=== PATIENT | female | born 1975 | race Caucasian/White ===

== ENCOUNTER 2019-02-04 07:26 | Emergency (ER) | payer OTHER ==
[2019-02-04 07:40] VITALS: RESP 16
[2019-02-04] MEDS ORDERED: SODIUM CHLORIDE 0.9% 1,000 ML IV STA (07:48)
[2019-02-04 08:03] LABS: Glucose,Whole Blood 100 mg/dL (75-99)
[2019-02-04] MEDS ORDERED: ONDANSETRON 4 MG/2 ML VIAL IVP STA (08:11)
[2019-02-04] MEDS ORDERED: MECLIZINE 12.5 MG TAB PO STA (08:12)
--- NOTE | 2019-02-04 08:14 | ED ---
General Adult HPI - General Chief complaint: Dizziness Stated complaint: Dizzy Time Seen by Provider: 02/04/19 07:45 Source: patient Mode of arrival: wheelchair Limitations: no limitations - History of Present Illness Initial comments: Dictation was produced using [employer] dictation software. please excuse any grammatical, word or spelling errors. Chief Complaint: Patient is a 43-year-old female past medical history of migr aines presents with chief complaint of dizziness. History of Present Illness: Patient is a 43-year-old female. Patient states she felt a little dizzy last night. She went to bed and woke up and felt really dizzy propping her to come to the emergency department. Patient has a past medical history of migraines. She does not complain of a headache today. Patient otherwise has felt normal. No vomiting. Patient states she has regular diarrhea. Patient has any medical problems. Denies any chest pain, shortness of breath. Denies any neuro deficits or asymmetrical sensory issues acutely. P atient reports that she feels more dizzy when she stands up. Denies any sensation of the room spinning. The ROS documented in this emergency department record has been reviewed and confirmed by me. Those systems with pertinent positive or negative responses have been documented in the HPI. All other systems are other negative and/or noncontributory. PHYSICAL EXAM: General Impression: Alert and oriented x3, not in acute distress HEENT: Normocephalic atraumatic, extra-ocular movements intact, pupils equal and reactive to light bilaterally, mucous membranes moist. Cardiovascular: Heart regular rate and rhythm, S1&S2 audible, no murmurs, rubs or gallops Chest: Lungs clear to auscultation bilaterally, no rhonchi, no wheeze, no rales Abdomen: Bowel sounds present, abdomen soft, non-tender, non-distended, no organomegaly Musculoskeletal: Pulses present and equal in all extremities, no peripheral edema Motor: no focal deficits noted Neurological: CN II-XII grossly intact, no focal motor or sensory deficits noted, no gait ataxia. The nose and heel to leija are not ataxic Skin: Intact with no visualized rashes Psych: Normal affect and mood ED course: 43-year-old female chief complaint dizziness. Physical examination is benign. No neuro deficits noted. Vital signs upon arrival are within except limits. EKG is benign. Patient is otherwise well-appearing. Patient has no localizing infectious symptoms. Laboratory evaluation obtained. CBC, metabolic panel, urinalysis, urine tests are within acceptable limits. Patient given intravenous fluids, Zofran and Antivert with improvement of symptoms after evaluation in couple hours. At this point there is no clear reason of patient's symptoms. She is told that however she appears well at this time there is no clinical suspicion of vertebrobasilar insufficiency or central vertigo. Patient has no gait ataxia. Neuro exam is otherwise benign. Patient clear for discharge. She still to follow-up with primary care physician. Patient prescription for Antivert to take at home when necessary dizziness. EKG interpretation: Ventricular rate 70, normal sinus rhythm, ID interval 148, QRS 82, QTC 419. No ID prolongation, no QTC prolongation, no ST or T-wave changes noted. . Overall, this EKG is unremarkable - Related Data Home Medications Medication Instructions Recorded Confirmed Cetirizine HCl [Zyrtec] 10 mg PO DAILY 06/02/15 02/04/19 Metoclopramide HCl [Reglan] 10 mg PO QID 06/02/15 02/04/19 Albuterol Sulfate [Proair Hfa] 1 - 2 puff INHALATION RT-Q6H PRN 01/23/16 02/04/19 Budesonide/Formoterol Fumarate 2 puff INHALATION RT-DAILY 01/23/16 02/04/19 [Symbicort 160-4.5 Mcg Inhaler] Butalb/Asprin/Caff 50-325-40Mg 1 - 2 cap PO Q4HR PRN 02/04/19 02/04/19 [Fiorinal 50-325-40 MG] Cholecalciferol [Vitamin D3] 1,000 unit PO DAILY 02/04/19 02/04/19 Ferrous Sulfate [Feosol] 325 mg PO DAILY 02/04/19 02/04/19 Omeprazole 40 mg PO DAILY 02/04/19 02/04/19 rOPINIRole HCL [Requip] 0.5 mg PO HS 02/04/19 02/04/19 Previous Rx's Medication Instructions Recorded Meclizine [Antivert] 25 mg PO BID PRN #12 tab 02/04/19 Allergies Allergy/AdvReac Type Severity Reaction Status Date / Time erythromycin base Allergy Severe Abdominal Verified 02/04/19 08:20 [From Elijah-Tab] Pain hydromorphone HCl AdvReac Nausea & Verified 02/04/19 08:20 [From Dilaudid] Vomiting Review of Systems ROS Statement: Those systems with pertinent positive or pertinent negative responses have been documented in the HPI. ROS Other: All systems not noted in ROS Statement are negative. Past Medical History Past Medical History: Asthma, GERD/Reflux, Pneumonia, Skin Disorder Additional Past Medical History / Comment(s): migraines, hypoglycemia, "I always run a low grade fever", irregular bowel movements, athritis, frequent hives from environmental allergies, gallbladder disorder. History of Any Multi-Drug Resistant Organisms: None Reported Past Surgical History: Tonsillectomy Additional Past Surgical History / Comment(s): EGD Past Anesthesia/Blood Transfusion Reactions: Motion Sickness, Postoperative Nausea & Vomiting (PONV) Past Psychological History: Depression Smoking Status: Current every day smoker Past Alcohol Use History: Occasional Past Drug Use History: None Reported - Past Family History Father Family Medical History: Cancer, Deep Vein Thrombosis (DVT) General Exam Limitations: no limitations Course Vital Signs 02/04/19 07:37 Temperature 98.3 F Pulse Rate 87 Respiratory 16 Rate Blood Pressure 123/80 O2 Sat by Pulse 97 Oximetry Medical Decision Making - Lab Data Result diagrams: 02/04/19 08:20 02/04/19 08:20 Lab Results 02/04/19 02/04/19 02/04/19 Range/Units 08:01 08:20 08:20 WBC (3.8-10.6) k/uL RBC (3.80-5.40) m/uL Hgb (11.4-16.0) gm/dL Hct (34.0-46.0) % MCV (80.0-100.0) fL MCH (25.0-35.0) pg MCHC (31.0-37.0) g/dL RDW (11.5-15.5) % Plt Count (150-450) k/uL Neutrophils % % Lymphocytes % % Monocytes % % Eosinophils % % Basophils % % Neutrophils # (1.3-7.7) k/uL Lymphocytes # (1.0-4.8) k/uL Monocytes # (0-1.0) k/uL Eosinophils # (0-0.7) k/uL Basophils # (0-0.2) k/uL Sodium (137-145) mmol/L Potassium (3.5-5.1) mmol/L Chloride (98-107) mmol/L Carbon Dioxide (22-30) mmol/L Anion Gap mmol/L BUN (7-17) mg/dL Creatinine (0.52-1.04) mg/dL Est GFR (CKD-EPI)AfAm (>60 ml/min/1.73 sqM) Est GFR (CKD-EPI)NonAf (>60 ml/min/1.73 sqM) Glucose (74-99) mg/dL POC Glucose (mg/dL) 100 H (75-99) mg/dL POC Glu Insolvency Consultant ID Natalie Maldonado Calcium (8.4-10.2) mg/dL Urine Color Light Yellow Urine Appearance Cloudy H (Clear) Urine pH 7.5 (5.0-8.0) Ur Specific [place] 1.009 (1.001-1.035) Urine Protein Negative (Negative) Urine Glucose (UA) Negative (Negative) Urine Ketones Negative (Negative) Urine Blood Negative (Negative) Urine Nitrite Negative (Negative) Urine Bilirubin Negative (Negative) Urine Urobilinogen <2.0 (<2.0) mg/dL Ur Leukocyte Esterase Moderate H (Negative) Urine WBC 4 (0-5) /hpf Ur Squamous Epith Cells 8 H (0-4) /hpf Urine Mucus Rare H (None) /hpf Urine Yeast (Budding) Rare H (None) /hpf Urine HCG, Qual Not Detected (Not Detectd) 02/04/19 02/04/19 Range/Units 08:20 08:20 WBC 8.7 (3.8-10.6) k/uL RBC 4.96 (3.80-5.40) m/uL Hgb 14.6 (11.4-16.0) gm/dL Hct 44.7 (34.0-46.0) % MCV 90.0 (80.0-100.0) fL MCH 29.4 (25.0-35.0) pg MCHC 32.7 (31.0-37.0) g/dL RDW 13.6 (11.5-15.5) % Plt Count 300 (150-450) k/uL Neutrophils % 62 % Lymphocytes % 26 % Monocytes % 6 % Eosinophils % 5 % Basophils % 1 % Neutrophils # 5.4 (1.3-7.7) k/uL Lymphocytes # 2.2 (1.0-4.8) k/uL Monocytes # 0.5 (0-1.0) k/uL Eosinophils # 0.4 (0-0.7) k/uL Basophils # 0.1 (0-0.2) k/uL Sodium 138 (137-145) mmol/L Potassium 4.5 (3.5-5.1) mmol/L Chloride 105 (98-107) mmol/L Carbon Dioxide 27 (22-30) mmol/L Anion Gap 6 mmol/L BUN 7 (7-17) mg/dL Creatinine 0.57 (0.52-1.04) mg/dL Est GFR (CKD-EPI)AfAm >90 (>60 ml/min/1.73 sqM) Est GFR (CKD-EPI)NonAf >90 (>60 ml/min/1.73 sqM) Glucose 96 (74-99) mg/dL POC Glucose (mg/dL) (75-99) mg/dL POC Glu Insolvency Consultant ID Calcium 10.3 H (8.4-10.2) mg/dL Urine Color Urine Appearance (Clear) Urine pH (5.0-8.0) Ur Specific [place] (1.001-1.035) Urine Protein (Negative) Urine Glucose (UA) (Negative) Urine Ketones (Negative) Urine Blood (Negative) Urine Nitrite (Negative) Urine Bilirubin (Negative) Urine Urobilinogen (<2.0) mg/dL Ur Leukocyte Esterase (Negative) Urine WBC (0-5) /hpf Ur Squamous Epith Cells (0-4) /hpf Urine Mucus (None) /hpf Urine Yeast (Budding) (None) /hpf Urine HCG, Qual (Not Detectd) Disposition Clinical Impression: Dizziness Disposition: HOME SELF-CARE Condition: Good Instructions (If sedation given, give patient instructions): Dizziness (ED) Prescriptions: Meclizine [Antivert] 25 mg PO BID PRN #12 tab PRN Reason: dizziness Is patient prescribed a controlled substance at d/c from ED?: No Referrals: Andrés Pabon MD [Primary Care Provider] - 1-2 days Time of Disposition: 09:55
[2019-02-04 08:46] LABS: Appearance,Urine Cloudy (Clear); Bilirubin,Urine Negative (Negative); Blood,Urine Negative (Negative); Budding Yeast,Urine Rare /hpf; Color,Urine Light Yellow; Glucose,Urine (UA) Negative (Negative); Ketones,Urine Negative (Negative); Leukocyte Esterase,Urine Moderate (Negative); Mucus,Urine Rare /hpf; Nitrite,Urine Negative (Negative); PH, Urine 7.5 (5.0-8.0); Protein,Urine Negative (Negative); Specific Gravity,Urine 1.009 (1.001-1.035); Squamous Epithelial Cell,Urine 8 /hpf (0-4); Urobilinogen,Urine <2.0 mg/dL (<2.0); WBC,Urine 4 /hpf (0-5)
[2019-02-04 09:17] LABS: Basophils # (A) 0.1 k/uL (0-0.2); Basophils % (A) 1 %; Eosinophils # (A) 0.4 k/uL (0-0.7); Eosinophils % (A) 5 %; HCT 44.7 % (34.0-46.0); HGB 14.6 gm/dL (11.4-16.0); Lymphocytes # (A) 2.2 k/uL (1.0-4.8); Lymphocytes % (A) 26 %; MCH 29.4 pg (25.0-35.0); MCHC 32.7 g/dL (31.0-37.0); Mean Platelet Volume 7.8; Monocytes # (A) 0.5 k/uL (0-1.0); Monocytes % (A) 6 %; Neutrophils # (A) 5.4 k/uL (1.3-7.7); Neutrophils % (A) 62 %; Platelet Count 300 k/uL (150-450); RBC 4.96 m/uL (3.80-5.40); RDW 13.6 % (11.5-15.5); WBC 8.7 k/uL (3.8-10.6)
[2019-02-04 09:21] LABS: Anion Gap 6 mmol/L; Blood Urea Nitrogen 7 mg/dL (7-17); Calcium 10.3 mg/dL (8.4-10.2); Carbon Dioxide 27 mmol/L (22-30); Chloride 105 mmol/L (98-107); Glucose 96 mg/dL (74-99); Potassium 4.5 mmol/L (3.5-5.1); Sodium 138 mmol/L (137-145)
[2019-02-04 10:16] VITALS: BP 121/80; PULSE 75; TEMP 98.5
== END 2019-02-04 10:16 | disposition home or self-care (01) ==
LOC: EC 07:26
DX: R42 Dizziness and giddiness (principal); R19.7 Diarrhea, unspecified; J45.909 Unspecified asthma, uncomplicated; K21.9 Gastro-esophageal reflux disease without esophagitis; F17.200 Nicotine dependence, unspecified, uncomplicated; Z88.1 Allergy status to other antibiotic agents; Z88.5 Allergy status to narcotic agent; Z79.51 Long term (current) use of inhaled steroids; Z79.899 Other long term (current) drug therapy; Z91.048 Other nonmedicinal substance allergy status
CPT/HCPCS: 36415; 93005; 80048; 85025; 81001; 81025; 99284; 96374; 96361; J2405

== ENCOUNTER → 2020-06-02 | Outpatient (CLI) | payer SELFPAY | END | disposition home or self-care (01) | LOC: LABWHC1 12:39 | PROVIDERS: ATTEND Family Medicine | DX: Z20.828 Contact with and (suspected) exposure to other viral communicable diseases (principal) | CPT/HCPCS: U0003; C9803 ==

== ENCOUNTER → 2020-11-10 | Outpatient (CLI) | payer OTHER ==
--- NOTE | 2020-11-14 14:08 | MM ---
Reason for exam: screening (asymptomatic). Last mammogram was performed 8 years ago. Physical Findings: A clinical breast exam by your physician is recommended on an annual basis and results should be correlated with mammographic findings. MG Screening Mammo w CAD Bilateral CC and MLO view(s) were taken. Prior study comparison: November 24, 2012, CAD bilateral diagnostic mammogram. There are scattered fibroglandular densities. There are benign appearing round calcifications bilaterally. There is no discrete abnormality. ASSESSMENT: Benign, BI-RAD 2 RECOMMENDATION: Routine screening mammogram of both breasts in 1 year.
== END | disposition home or self-care (01) ==
LOC: RADMAMWWP 09:58
PROVIDERS: ATTEND Obstetrics & Gynecology
DX: Z12.31 Encounter for screening mammogram for malignant neoplasm of breast (principal); Z98.82 Breast implant status
CPT/HCPCS: 77067

== ENCOUNTER → 2021-01-03 | Outpatient (CLI) | payer OTHER ==
--- NOTE | 2021-01-03 15:57 | CT ---
EXAMINATION TYPE: CT brain wo con DATE OF EXAM: 01/03/2021 COMPARISON: HISTORY: Headache x2 days. CT DLP: 999.1 mGycm. Automated Exposure Control for Dose Reduction was Utilized. TECHNIQUE: CT scan of the head is performed without contrast. FINDINGS: There is no acute intracranial hemorrhage, mass effect, or midline shift identified. The ventricles and sulci are within normal limits in size. The globes are intact and the visualized sin uses are clear. Minimal inferior cerebellar tonsillar ectopia noted incidentally. IMPRESSION: No acute intracranial hemorrhage, mass effect, or midline shift is seen.
== END | disposition home or self-care (01) ==
LOC: RADCTMAIN 15:22
PROVIDERS: ATTEND Physician Assistant
DX: R51.9 Headache, unspecified (principal)
CPT/HCPCS: 70450

== ENCOUNTER 2021-07-04 06:19 | Day surgery (SDC) | payer OTHER ==
[2021-06-30 14:44] VITALS: BMI 34.7
[~2021-07-04 06:19] MED LIST: Pre Op ABX Message 1 EACH MISC MISCELLANE ONE
[2021-07-04] MEDS ORDERED: ONDANSETRON 4 MG/2 ML VIAL ONE (07:03)
[2021-07-04] MEDS ORDERED: ONDANSETRON 4 MG/2 ML VIAL IVP ONE (07:06)
[2021-07-04] MEDS ORDERED: LACTATED RINGERS 1,000 ML IV ONE ×3 (07:06→08:30)
[2021-07-04] MEDS ORDERED: SCOPOLAMINE 1.5MG/72HR PATCH TRANSDERM ONE (07:07)
[2021-07-04] MEDS ORDERED: DEXAMETHASONE SOD PHOSPHATE 4 MG/ML 1 ML VIAL IVP ONE (07:07)
[2021-07-04 07:10] LABS: Basophils # (A) 0.1 k/uL (0-0.2); Basophils % (A) 1 %; Eosinophils # (A) 0.5 k/uL (0-0.7); Eosinophils % (A) 4 %; HCT 43.4 % (34.0-46.0); Lymphocytes # (A) 3.7 k/uL (1.0-4.8); Lymphocytes % (A) 32 %; MCHC 34.6 g/dL (31.0-37.0); MCV 95.1 fL (80.0-100.0); Mean Platelet Volume 8.2; Monocytes # (A) 0.7 k/uL (0-1.0); Monocytes % (A) 7 %; Neutrophils # (A) 6.2 k/uL (1.3-7.7); Neutrophils % (A) 55 %; Platelet Count 298 k/uL (150-450); RBC 4.56 m/uL (3.80-5.40); RDW 13.5 % (11.5-15.5); WBC 11.4 k/uL (3.8-10.6)
--- NOTE | 2021-07-04 07:16 | P.HPOB ---
History of Present Illness H&P Date: 07/04/21 Chief Complaint: family planning 45 year old presents for laparoscopic tubal ligation. Review of Systems All systems: negative Constitutional: Denies chills, Denies fever Eyes: denies blurred vision, denies pain Ears, nose, mouth and throat: Denies headache, Denies sore throat Cardiovascular: Denies chest pain, Denies shortness of breath Respiratory: Denies cough Gastrointestinal: Denies abdominal pain, Denies diarrhea, Denies nausea, Denies vomiting Genitourinary: Denies dysuria, Denies hematuria Musculoskeletal: Denies myalgias Integumentary: Denies pruritus, Denies rash Neurological: Denies numbness, Denies weakness Psychiatric: Denies anxiety, Denies depression Endocrine: Denies fatigue, Denies weight change Past Medical History Past Medical History: Asthma, GERD/Reflux, Pneumonia, Skin Disorder Additional Past Medical History / Comment(s): migraines, hypoglycemia, "I always run a low grade fever", irregular bowel movements, athritis, frequent hives from environmental History of Any Multi-Drug Resistant Organisms: None Reported Past Surgical History: Cholecystectomy, Tonsillectomy Additional Past Surgical History / Comment(s): EGD Past Anesthesia/Blood Transfusion Reactions: Motion Sickness, Postoperative Nausea & Vomiting (PONV) Smoking Status: Current every day smoker - Past Family History Father Family Medical History: Cancer, Deep Vein Thrombosis (DVT) Medications and Allergies Home Medications Medication Instructions Recorded Confirmed Type Cetirizine HCl [Zyrtec] 10 mg PO DAILY 06/02/15 07/04/21 History Metoclopramide HCl [Reglan] 10 mg PO QID 06/02/15 07/04/21 History Albuterol Sulfate [Proair Hfa] 1 - 2 puff INHALATION RT-Q6H PRN 01/23/16 07/04/21 History Budesonide/Formoterol Fumarate 2 puff INHALATION RT-DAILY 01/23/16 07/04/21 History [Symbicort 160-4.5 Mcg Inhaler] Butalb/Asprin/Caff 50-325-40Mg 1 - 2 cap PO Q4HR PRN 02/04/19 07/04/21 History [Fiorinal 50-325-40 MG] Cholecalciferol [Vitamin D3] 1,000 unit PO DAILY 02/04/19 07/04/21 History Ferrous Sulfate [Feosol] 325 mg PO DAILY 02/04/19 07/04/21 History Meclizine [Antivert] 25 mg PO BID PRN #12 tab 02/04/19 07/04/21 Rx Omeprazole 40 mg PO DAILY 02/04/19 07/04/21 History rOPINIRole HCL [Requip] 0.5 mg PO HS 02/04/19 07/04/21 History Escitalopram Oxalate [Lexapro] 10 mg PO DAILY 07/04/21 07/04/21 History Allergies Allergy/AdvReac Type Severity Reaction Status Date / Time erythromycin base Allergy Severe Abdominal Verified 07/04/21 06:43 [From Elijah-Tab] Pain hydromorphone HCl AdvReac Nausea & Verified 07/04/21 06:43 [From Dilaudid] Vomiting NARCOTICS AdvReac Nausea & Uncoded 07/04/21 07:12 Vomiting Exam Osteopathic Statement: *. No significant issues noted on an osteopathic structural exam other than those noted in the History and Physical/Consult. Vital Signs Temp Pulse Resp BP Pulse Ox 07/04/21 06:48 97.5 F L 70 17 113/61 98 Intake and Output 07/03/21 07/04/21 07/04/21 22:59 06:59 14:59 Other: Weight 87.1 kg Heart: Regular rate and rhythm Lungs: Clear to auscultation bilaterally Abdomen: Soft, nontender Extremities: Negative Homans sign Results Result Diagrams: 07/04/21 07:00 Abnormal Lab Results - Last 24 Hours (Table) 07/04/21 Range/Units 07:00 WBC 11.4 H (3.8-10.6) k/uL Assessment and Plan (1) Family planning Current Visit: Yes Status: Acute Code(s): Z30.09 - ENCOUNTER FOR OTH GENERAL CNSL AND ADVICE ON CONTRACEPTION SNOMED Code(s): 949559280 Plan: 1. laparoscopic tubal ligation
[2021-07-04] MEDS ORDERED: SUCCINYLCHOLINE CHLORIDE 100 MG/5 ML SYR IV ONE (07:30)
[2021-07-04] MEDS ORDERED: LIDOCAINE 1% INJ 10MG/ML (20 ML MDV) ONE (07:30)
[2021-07-04] MEDS ORDERED: PROPOFOL 10 MG/ML 20 ML VIAL IV ONE (07:30)
[2021-07-04] MEDS ORDERED: ROCURONIUM 10 MG/ML (5 ML VIAL) IV ONE (07:30)
[2021-07-04] MEDS ORDERED: GLYCOPYRROLATE 0.2 MG/ML 2 ML VIAL ONE (07:30)
[2021-07-04] MEDS ORDERED: NEOSTIGMINE 1 MG/ML 10 ML VIAL ONE (07:30)
[2021-07-04] MEDS ORDERED: KETOROLAC 15 MG/ML 1 ML VIAL ONE (07:30)
[2021-07-04] MEDS ORDERED: fentaNYL (PF) 50 MCG/ML 2 ML AMP ONE (07:30)
[2021-07-04] MEDS ORDERED: MIDAZOLAM 2 MG/2 ML VIAL ONE (07:30)
[2021-07-04 07:35] LABS: Glucose,Whole Blood 109 mg/dL (75-99)
[2021-07-04] MEDS ORDERED: BUPIVACAINE (PF) 0.25% 30 ML VIAL SQ ONE ×2 (07:53→08:05)
--- NOTE | 2021-07-04 08:13 | P.OP ---
Date of Procedure: 07/04/21 Preoperative Diagnosis: 1. Family Planning Postoperative Diagnosis: 1. Family Planning Procedure(s) Performed: Laparoscopic tubal ligation Anesthesia: ASHLEY Surgeon: Christine Mejia Estimated Blood Loss (ml): 5 IV fluids (ml): 200 Urine output (ml): 15 Pathology: none sent Condition: stable Disposition: PACU Operative Findings: Normal uterus, tubes, ovaries. Description of Procedure: Patient was taken to the operating room where general anesthesia was obtained without difficulty. She was prepped and draped in normal sterile fashion in the dorsal lithotomy position, legs placed in the Luan stirrups. Bladder drained of all urine. [place] speculum placed in the vagina and the anterior lip the cervix was grasped with single-tooth tenaculum. The uterus is sounded to 8 cm and the kroner manipulator was placed. Attention was then turned to the abdomen and gloves were changed. A 10 mm infraumbilical incision was made the scalpel and 10 mm optical trocar was placed under direct visualization. A 5 mm suprapubic Incision was made and a 5 mm optical trocar was placed under direct visualization. Survey of the pelvis revealed normal uterus tubes and ovaries. The left fallopian tube was grasped with a Kleppinger and fulgurated 2-3 cm on this side in the ampullar portion. The right fallopian tube was grasped with a Kleppinger and fulgurated 2-3 cm in the ampullar portion. All instruments were then removed from the abdomen and vagina. The 10 mm infraumbilical incision was closed with 0 Vicryl and the fascial layer and then 4-0 Vicryl in a subcuticular fashion. The 5 mm incision was closed with 4-0 Vicryl in a subcuticular fashion. Patient tolerated procedure well, sponge and instrument counts correct 2 and she was taken to recovery room in stable condition.
[2021-07-04 08:31] VITALS: TEMP 97.1
[2021-07-04 09:30] VITALS: RESP 18
[2021-07-04 09:33] VITALS: BP 123/74; PULSE 96
== END 2021-07-04 10:05 | disposition home or self-care (01) ==
LOC: OR 06:19
PROVIDERS: ATTEND Obstetrics & Gynecology
DX: Z30.9 Encounter for contraceptive management, unspecified (principal); F17.200 Nicotine dependence, unspecified, uncomplicated; J45.909 Unspecified asthma, uncomplicated; K21.9 Gastro-esophageal reflux disease without esophagitis; Z79.51 Long term (current) use of inhaled steroids; Z79.899 Other long term (current) drug therapy; Z88.1 Allergy status to other antibiotic agents; Z88.5 Allergy status to narcotic agent; Z90.49 Acquired absence of other specified parts of digestive tract
CPT/HCPCS: 58670; 81025; 85025; J2250; J1100; J2710; J2405; J2001; J3010; J1885; J0330; J2704

== ENCOUNTER 2022-04-01 21:35 | Emergency (ER) | payer OTHER ==
[2022-04-01 22:28] VITALS: RESP 18
[2022-04-01] MEDS ORDERED: diphenhydrAMINE 50 MG/ML 1 ML VIAL IVP STA (23:31)
[2022-04-01] MEDS ORDERED: IBUPROFEN 600 MG TAB PO STA (23:31)
[2022-04-01] MEDS ORDERED: ACETAMINOPHEN TAB 500 MG TAB PO STA (23:31)
[2022-04-01] MEDS ORDERED: FAMOTIDINE 20 MG/2 ML VIAL IV STA (23:31)
[2022-04-01] MEDS ORDERED: SODIUM CHLORIDE 0.9% 1,000 ML IV STA (23:31)
[2022-04-01] MEDS ORDERED: hydrOXYzine HCL 25 MG TAB PO STA (23:31)
[2022-04-01] MEDS ORDERED: DEXAMETHASONE SOD PHOSPHATE 10 MG/ML 1 ML VIAL IVP STA (23:31)
--- NOTE | 2022-04-01 23:35 | ED ---
Fever HPI - General Chief Complaint: Allergic Reaction Stated Complaint: Rash Time Seen by Provider: 04/01/22 23:27 Source: patient, RN notes reviewed, old records reviewed Mode of arrival: ambulatory Limitations: no limitations - History of Present Illness Initial Comments: This is a 46-year-old female to the ER today. Patient presents today for evalu ation regards to fever. 2 days of fever, woke up with rash tonight. Patient has full my body rash arms legs feet knees thighs chest. Patient has no shortness of breath no cough or congestion. Maybe a little scratchy sore throat maybe some generalized body aches and pains. Patient has no known significant sick contacts. No current dysuria abdominal pain nausea vomiting MD Complaint: fever, other (For body rash) -: hour(s) Temperature Source: oral Context: sick contacts Associated Symptoms: chills, myalgias, nasal congestion, sore throat, cough Treatments Prior to Arrival: Acetaminophen - Related Data Home Medications Medication Instructions Recorded Confirmed Cetirizine HCl [Zyrtec] 10 mg PO DAILY 06/02/15 07/04/21 Metoclopramide HCl [Reglan] 10 mg PO QID 06/02/15 07/04/21 Albuterol Sulfate [Proair Hfa] 1 - 2 puff INHALATION RT-Q6H PRN 01/23/16 07/04/21 Budesonide/Formoterol Fumarate 2 puff INHALATION RT-DAILY 01/23/16 07/04/21 [Symbicort 160-4.5 Mcg Inhaler] Butalb/Asprin/Caff 50-325-40Mg 1 - 2 cap PO Q4HR PRN 02/04/19 07/04/21 [Fiorinal 50-325-40 MG] Cholecalciferol [Vitamin D3] 1,000 unit PO DAILY 02/04/19 07/04/21 Ferrous Sulfate [Feosol] 325 mg PO DAILY 02/04/19 07/04/21 Omeprazole 40 mg PO DAILY 02/04/19 07/04/21 rOPINIRole HCL [Requip] 0.5 mg PO HS 02/04/19 07/04/21 Escitalopram Oxalate [Lexapro] 10 mg PO DAILY 07/04/21 07/04/21 Previous Rx's Medication Instructions Recorded Meclizine [Antivert] 25 mg PO BID PRN #12 tab 02/04/19 Acetaminophen-Codeine 300-30mg 2 tab PO Q6H PRN #20 tablet 07/04/21 [Tylenol #3] Ibuprofen [Motrin] 600 mg PO Q6HR PRN #30 tab 07/04/21 Dexamethasone [Decadron] 6 mg PO DAILY #7 tablet 04/02/22 Famotidine [Pepcid] 40 mg PO BID #28 tablet 04/02/22 hydrOXYzine HCL [Atarax] 25 mg PO TID PRN #15 tab 04/02/22 Allergies Allergy/AdvReac Type Severity Reaction Status Date / Time erythromycin base Allergy Severe Abdominal Verified 04/01/22 22:29 [From Elijah-Tab] Pain hydromorphone HCl AdvReac Nausea & Verified 04/01/22 22:29 [From Dilaudid] Vomiting NARCOTICS AdvReac Nausea & Uncoded 04/01/22 22:29 Vomiting Review of Systems ROS Statement: Those systems with pertinent positive or pertinent negative responses have been documented in the HPI. ROS Other: All systems not noted in ROS Statement are negative. Past Medical History Past Medical History: Asthma, GERD/Reflux, Pneumonia, Skin Disorder Additional Past Medical History / Comment(s): migraines, hypoglycemia, "I always run a low grade fever", irregular bowel movements, athritis, frequent hives from environmental History of Any Multi-Drug Resistant Organisms: None Reported Past Surgical History: Cholecystectomy, Tonsillectomy Additional Past Surgical History / Comment(s): EGD Past Anesthesia/Blood Transfusion Reactions: Motion Sickness, Postoperative Nausea & Vomiting (PONV) Past Psychological History: Depression Smoking Status: Current every day smoker Past Alcohol Use History: None Reported Past Drug Use History: None Reported - Past Family History Father Family Medical History: Cancer, Deep Vein Thrombosis (DVT) General Exam General appearance: alert, in no apparent distress Head exam: Present: atraumatic, normocephalic, normal inspection Eye exam: Present: normal appearance, PERRL, EOMI. Absent: scleral icterus, conjunctival injection, periorbital swelling ENT exam: Present: normal exam, mucous membranes moist Neck exam: Present: normal inspection. Absent: tenderness, meningismus, lymphadenopathy Respiratory exam: Present: normal lung sounds bilaterally. Absent: respiratory distress, wheezes, rales, rhonchi, stridor Cardiovascular Exam: Present: regular rate, normal rhythm, normal heart sounds. Absent: systolic murmur, diastolic murmur, rubs, gallop, clicks GI/Abdominal exam: Present: soft, normal bowel sounds. Absent: distended, tenderness, guarding, rebound, rigid Extremities exam: Present: normal inspection, full ROM, normal capillary refill. Absent: tenderness, pedal edema, joint swelling, calf tenderness Back exam: Present: normal inspection Neurological exam: Present: alert, oriented X3, CN II-XII intact Psychiatric exam: Present: normal affect, normal mood Skin exam: Present: warm, dry, intact, normal color. Absent: rash Course Vital Signs 04/01/22 22:25 Temperature 99.2 F Pulse Rate 92 Respiratory 18 Rate Blood Pressure 113/69 O2 Sat by Pulse 96 Oximetry - Reevaluation(s) Reevaluation #1: 04/01/22 23:34 Record is reviewed Reevaluation #2: 04/02/22 00:25 Recent rashes mildly improved still mild itching of the hands Reevaluation #3: 04/02/22 00:25 Patient informed of results, coronavirus results off work for 5 days. Patient informed of low electrolytes Replacement improvement of diet Reevaluation #4: 04/02/22 01:26 Patient feels okay for discharge, no reaction to anti- body Medical Decision Making - Medical Decision Making 46 female positive coronavirus positive fever with significant urticarial rash. Patient given symptomatically treatments at home on steroids given antiBody here in the emergency department feeling well no shortness of breath and can be discharged - Lab Data Result diagrams: 04/01/22 23:36 04/01/22 23:36 Lab Results 04/01/22 04/01/22 04/01/22 Range/Units 23:36 23:36 23:36 WBC 4.3 (3.8-10.6) k/uL RBC 4.64 (3.80-5.40) m/uL Hgb 14.3 (11.4-16.0) gm/dL Hct 43.1 (34.0-46.0) % MCV 92.9 (80.0-100.0) fL MCH 30.9 (25.0-35.0) pg MCHC 33.2 (31.0-37.0) g/dL RDW 12.1 (11.5-15.5) % Plt Count 202 (150-450) k/uL MPV 8.4 Neutrophils % 65 % Lymphocytes % 20 % Monocytes % 10 % Eosinophils % 1 % Basophils % 3 % Neutrophils # 2.8 (1.3-7.7) k/uL Lymphocytes # 0.8 L (1.0-4.8) k/uL Monocytes # 0.4 (0-1.0) k/uL Eosinophils # 0.0 (0-0.7) k/uL Basophils # 0.1 (0-0.2) k/uL Sodium 139 (137-145) mmol/L Potassium 3.4 L (3.5-5.1) mmol/L Chloride 105 (98-107) mmol/L Carbon Dioxide 26 (22-30) mmol/L Anion Gap 8 mmol/L BUN 6 L (7-17) mg/dL Creatinine 0.60 (0.52-1.04) mg/dL Est GFR (CKD-EPI)AfAm >90 (>60 ml/min/1.73 sqM) Est GFR (CKD-EPI)NonAf >90 (>60 ml/min/1.73 sqM) Glucose 107 H (74-99) mg/dL Calcium 10.5 H (8.4-10.2) mg/dL Phosphorus 4.3 (2.5-4.5) mg/dL Magnesium 0.9 L* (1.6-2.3) mg/dL Total Bilirubin 0.1 L (0.2-1.3) mg/dL AST 42 H (14-36) U/L ALT 31 (4-34) U/L Alkaline Phosphatase 49 (38-126) U/L Lactate Dehydrogenase 474 (313-618) U/L C-Reactive Protein 5.2 H (<1.0) mg/dL Total Protein 7.2 (6.3-8.2) g/dL Albumin 4.3 (3.5-5.0) g/dL Coronavirus (PCR) (Not Detectd) Influenza Type A RNA Not Detected (Not Detectd) Influenza Type B (PCR) Not Detected (Not Detectd) 04/01/22 Range/Units 23:36 WBC (3.8-10.6) k/uL RBC (3.80-5.40) m/uL Hgb (11.4-16.0) gm/dL Hct (34.0-46.0) % MCV (80.0-100.0) fL MCH (25.0-35.0) pg MCHC (31.0-37.0) g/dL RDW (11.5-15.5) % Plt Count (150-450) k/uL MPV Neutrophils % % Lymphocytes % % Monocytes % % Eosinophils % % Basophils % % Neutrophils # (1.3-7.7) k/uL Lymphocytes # (1.0-4.8) k/uL Monocytes # (0-1.0) k/uL Eosinophils # (0-0.7) k/uL Basophils # (0-0.2) k/uL Sodium (137-145) mmol/L Potassium (3.5-5.1) mmol/L Chloride (98-107) mmol/L Carbon Dioxide (22-30) mmol/L Anion Gap mmol/L BUN (7-17) mg/dL Creatinine (0.52-1.04) mg/dL Est GFR (CKD-EPI)AfAm (>60 ml/min/1.73 sqM) Est GFR (CKD-EPI)NonAf (>60 ml/min/1.73 sqM) Glucose (74-99) mg/dL Calcium (8.4-10.2) mg/dL Phosphorus (2.5-4.5) mg/dL Magnesium (1.6-2.3) mg/dL Total Bilirubin (0.2-1.3) mg/dL AST (14-36) U/L ALT (4-34) U/L Alkaline Phosphatase (38-126) U/L Lactate Dehydrogenase (313-618) U/L C-Reactive Protein (<1.0) mg/dL Total Protein (6.3-8.2) g/dL Albumin (3.5-5.0) g/dL Coronavirus (PCR) Detected A (Not Detectd) Influenza Type A RNA (Not Detectd) Influenza Type B (PCR) (Not Detectd) Disposition Clinical Impression: Urticaria, Coronavirus infection, Fever, Hypomagnesemia, Hypokalemia Disposition: HOME SELF-CARE Condition: Good Instructions (If sedation given, give patient instructions): Coronavirus Disease 2019 (COVID-19), Urticaria (ED), Hypokalemia (ED), Hypomagnesemia (ED) Prescriptions: hydrOXYzine HCL [Atarax] 25 mg PO TID PRN #15 tab PRN Reason: Itching Dexamethasone [Decadron] 6 mg PO DAILY #7 tablet Famotidine [Pepcid] 40 mg PO BID #28 tablet Is patient prescribed a controlled substance at d/c from ED?: No Referrals: Andrés Pabon MD [Primary Care Provider] - 1-2 days
[2022-04-01 23:59] LABS: ALT 31 U/L (4-34); AST 42 U/L (14-36); African American GFR (CKD) >90 (>60 ml/min/1.73 sqM); Albumin 4.3 g/dL (3.5-5.0); Alkaline Phosphatase 49 U/L (38-126); Anion Gap 8 mmol/L; Blood Urea Nitrogen 6 mg/dL (7-17); C Reactive Protein 5.2 mg/dL (<1.0); Calcium 10.5 mg/dL (8.4-10.2); Carbon Dioxide 26 mmol/L (22-30); Chloride 105 mmol/L (98-107); Glucose 107 mg/dL (74-99); LDH 474 U/L (313-618); Non-African American GFR(CKD) >90 (>60 ml/min/1.73 sqM); Phosphorus 4.3 mg/dL (2.5-4.5); Potassium 3.4 mmol/L (3.5-5.1); Sodium 139 mmol/L (137-145); Total Bilirubin 0.1 mg/dL (0.2-1.3); Total Protein 7.2 g/dL (6.3-8.2)
[2022-04-02] LABS: Basophils # (A) 0.1 k/uL (0-0.2); Basophils % (A) 3 %; Eosinophils % (A) 1 %; HCT 43.1 % (34.0-46.0); HGB 14.3 gm/dL (11.4-16.0); Lymphocytes # (A) 0.8 k/uL (1.0-4.8); Lymphocytes % (A) 20 %; MCH 30.9 pg (25.0-35.0); MCHC 33.2 g/dL (31.0-37.0); MCV 92.9 fL (80.0-100.0); Mean Platelet Volume 8.4; Monocytes # (A) 0.4 k/uL (0-1.0); Monocytes % (A) 10 %; Neutrophils # (A) 2.8 k/uL (1.3-7.7); Neutrophils % (A) 65 %; Platelet Count 202 k/uL (150-450); RBC 4.64 m/uL (3.80-5.40); RDW 12.1 % (11.5-15.5); WBC 4.3 k/uL (3.8-10.6)
[2022-04-02 00:07] LABS: Magnesium 0.9 mg/dL (1.6-2.3)
[2022-04-02] MEDS ORDERED: MAGNESIUM OXIDE 400 MG TAB PO STA ×2 (00:24)
[2022-04-02] MEDS ORDERED: POTASSIUM CHLORIDE ER 20 MEQ TAB.ER PO STA ×2 (00:24)
[2022-04-02] MEDS: MAGNESIUM SULFATE-D5W PMX 1 GM in DEXTROSE/WATER 1 100ML.BAG IVPB SCH ×2 (00:37→01:45)
[2022-04-02] MEDS ORDERED: BEBTELOVIMAB (EUA) 175 MG/2 ML VIAL IV ONE (00:45)
[2022-04-02 02:16] VITALS: BP 127/79; PULSE 83; TEMP 98
== END 2022-04-02 03:00 | disposition home or self-care (01) ==
LOC: EC 21:35
DX: U07.1 COVID-19 (principal); L50.9 Urticaria, unspecified; E87.6 Hypokalemia; E83.42 Hypomagnesemia; J45.909 Unspecified asthma, uncomplicated; K21.9 Gastro-esophageal reflux disease without esophagitis; Z79.83 Long term (current) use of bisphosphonates; F17.200 Nicotine dependence, unspecified, uncomplicated; Z88.5 Allergy status to narcotic agent; Z88.1 Allergy status to other antibiotic agents
CPT/HCPCS: 36415; 80053; 83615; 83735; 84100; 85025; 86140; 87502; 87635; 96361; 99284; 96374; J1200; J1100

== ENCOUNTER → 2023-02-28 | Outpatient (CLI) | payer OTHER ==
--- NOTE | 2023-03-01 10:23 | MM ---
Reason for Exam: Screening (asymptomatic). Last mammogram was performed 2 year(s) and 4 month(s) ago. Patient History: Menarche at age 14. First Full-Term at age 20. Risk Values: Stella 5 year model risk: 0.7%. NCI Lifetime model risk: 7.7%. Prior Study Comparison: 11/24/2012 Bilateral Diagnostic Mammogram, [facility]. 11/10/2020 Bilateral Screening Mammogram, [facility]. Tissue Density: There are scattered fibroglandular densities. Findings: Analyzed By CAD. There is single benign-appearing round calcification in the left breast redemonstrated. There are prominent but benign-appearing right axillary lymph nodes seen on current study. There is no suspicious group of microcalcifications or new suspicious mass in either breast. Overall Assessment: Negative, BI-RAD 1 Management: Screening Mammogram of both breasts in 1 year. A clinical breast exam by your physician is recommended on an annual basis and results should be correlated with mammographic findings. Electronically signed and approved by: Ben Garibay M.D.
== END | disposition home or self-care (01) ==
LOC: RADMAMWWP 14:40
PROVIDERS: ATTEND Family Medicine
DX: Z12.31 Encounter for screening mammogram for malignant neoplasm of breast (principal)
CPT/HCPCS: 77063; 77067

== ENCOUNTER 2023-06-12 11:27 | Day surgery (SDC) | payer OTHER ==
[2023-06-05 16:16] VITALS: BMI 38.9
[~2023-06-12 11:27] MED LIST changes: +LACTATED RINGERS 1,000 ML IV SCH; +LIDOCAINE 1% (10MG/ML) FOR IV START INTRADERMA PRN; -Pre Op ABX Message 1 EACH MISC MISCELLANE ONE
[2023-06-12 11:49] VITALS: TEMP 97
[2023-06-12] MEDS ORDERED: HYDROCORTISONE SUCCINATE 100 MG/2 ML VIAL IVP ONE (12:07)
[2023-06-12 12:15] LABS: Glucose,Whole Blood 114 mg/dL (70-110)
[2023-06-12] MEDS ORDERED: PROPOFOL 10 MG/ML 20 ML VIAL IV ONE (13:05)
[2023-06-12] MEDS ORDERED: KETAMINE 10 MG/ML 20 ML VIAL ONE (13:05)
[2023-06-12] MEDS ORDERED: LIDOCAINE 2% INJ 20 MG/ML (2 ML VIAL) ONE (13:05)
--- NOTE | 2023-06-12 13:18 | P.PCN ---
Date of Procedure: 06/12/23 Procedure(s) Performed: BRIEF HISTORY: Patient is a 47-year-old, pleasant, white female scheduled for an upper endoscopy as a part of evaluation of gastroesophageal reflux symptoms for the last several months duration. She has been on Nexium 40 mg daily but lately has been having breakthrough heartburn nocturnally and was started on Pepcid 20 mg at bedtime. PROCEDURE PERFORMED: Esophagogastroduodenoscopy with biopsy. PREOPERATIVE DIAGNOSIS: Long-standing history of GERD. IV sedation per anesthesia. PROCEDURE: After informed consent was obtained, the patient was brought into the endoscopy unit. IV sedation was administered by Anesthesia under continuous monitoring. Initially the Olympus GIF-140 video endoscope was inserted into the mouth. Esophagus intubated without any difficulty. It was gradually advanced into the stomach and duodenum and carefully examined. The bulb and the second part of the duodenum appeared normal. The scope at this time was withdrawn to the stomach, adequately insufflated with air, and upon careful examination, mucosa of the antrum had a small gastric polyps was biopsied. Mucosa of the, body, cardia and the fundus appeared normal. The scope was then withdrawn into the esophagus. The GE junction was located at 39 cm from the incisors. The esophagus appeared normal. There were no erosions or ulcerations seen , biopsies were done from the distal esophagus and the patient tolerated the procedure well. IMPRESSION: 1. Small gastric polyp and antrum of the stomach status post biopsy. 2. Normal appearing esophagus with no evidence of esophagitis or Zepeda's esophagus. RECOMMENDATIONS: The findings of this examination were discussed with the patient as well as a family. She was advised to follow with the biopsy results. Continue with Nexium 20 mg in the morning and Pepcid 20 mg at bedtime and follow antireflux measures..
[2023-06-12 13:53] VITALS: BP 112/62; PULSE 78; RESP 18
== END 2023-06-12 14:15 | disposition home or self-care (01) ==
LOC: ORWHC2ENDO 11:27
PROVIDERS: ATTEND Internal Medicine Gastroenterology
DX: K31.7 Polyp of stomach and duodenum (principal); Z79.1 Long term (current) use of non-steroidal anti-inflammatories (NSAID); J45.909 Unspecified asthma, uncomplicated; E11.9 Type 2 diabetes mellitus without complications; K21.9 Gastro-esophageal reflux disease without esophagitis; Z79.84 Long term (current) use of oral hypoglycemic drugs; Z79.899 Other long term (current) drug therapy
CPT/HCPCS: 81025; 88305; 43239; J1720; J2704; J2001

== ENCOUNTER → 2024-01-22 | Outpatient (CLI) | payer OTHER ==
--- NOTE | 2024-01-22 22:06 | MR ---
EXAMINATION TYPE: MR brain wo con DATE OF EXAM: 01/22/2024 8:28 PM CLINICAL INDICATION:Female, 48 years old with history of [id number] VISUAL DISCOMFORT, UNSPECIFIED; PHH, Vision problems, severe migraines. COMPARISON: CT head from 01/03/2021. TECHNIQUE: Multi planar, multi sequential MRI of the brain was performed without contrast. FINDINGS: There is no evidence of diffusion restriction to suggest recent infarct. No extra-axial fluid collect ion, midline shift, or mass effect. Ventricles are normal in size and position. Basal cisterns are patent. There is grossly preserved lb w-related enhancement of the major vessels near the skull base. The hatch/white matter distinction appears preserved throughout the brain. There are a couple of mildl y prominent dilated perivascular spaces near the inferior aspect of the basal ganglia. No pathologic T2 FLAIR signal abnormalities are identified. No evidence of mass. No evidence of microhemorrhage is identified. Midline brain anatomy appears normal. No thinning of the corpus callosum is identified. Normal size a nd appearance of the pituitary. Orbits and contents are grossly unremarkable. There are small nodular foci of increased T2 signal int ensity in the bilateral maxillary sinuses which could reflect mucous retention cysts. There are addit ionally several small circumscribed T2 hyperintense nodular structures seen scattered throughout the soft tissues of the lower head and neck, of uncertain etiology but some sort of cysts are in the diff erential. No focal calvarial signal abnormalities. IMPRESSION: 1. No evidence of intracranial mass, acute/subacute infarct, or hemorrhage. 2. No appreciable white matter signal abnormalities.
== END | disposition home or self-care (01) ==
LOC: RADMRIMAIN 19:44
PROVIDERS: ATTEND Family Medicine
DX: H53.149 Visual discomfort, unspecified (principal); G43.909 Migraine, unspecified, not intractable, without status migrainosus
CPT/HCPCS: 70551